=== PATIENT | male | born 1945 | race Asian ===

== ENCOUNTER 2016-11-22 16:33 | Emergency (ER) | payer OTHER, MEDICAID ==
[~2016-11-22] VITALS: Ht 167.6 cm; Wt 68.0 kg
[2016-11-22 16:33] VITALS: BP_SYST 150
[2016-11-22 16:50] VITALS: BP_SYST 150
== END 2016-11-22 16:45 ==
LOC: SED 16:33
DX: Z02.89 Encounter for other administrative examinations (principal)
CPT/HCPCS: 99283